=== PATIENT | male | born 1995 | race Hispanic/Latino ===

== ENCOUNTER 2020-09-23 19:23 | Emergency (ER) | payer OTHER ==
[~2020-09-23] VITALS: Ht 170.2 cm; Wt 74.8 kg
[2020-09-23] MEDS ORDERED: LIDOCAINE HCL 1% LOCAL INJ 20 ML VIAL INJ ONE (19:30)
[2020-09-23] MEDS ORDERED: TETANUS/DIPHTHERIA TOX ADULT 0.5 ML SYR ONE (19:48)
[2020-09-23] MEDS ORDERED: TETANUS/DIPHTHERIA TOX ADULT 0.5 ML SYR IM ONE (20:00)
[2020-09-23] MEDS ORDERED: CEPHALEXIN500 MG PO (20:12)
[2020-09-23] MEDS ORDERED: BACITRACIN ZINC 0.9GM TP ONE (21:31)
== END 2020-09-23 21:34 | disposition home or self-care (01) ==
LOC: ER 19:29
DX: S61.012A Laceration without foreign body of left thumb without damage to nail, initial encounter (principal); W26.0XXA Contact with knife, initial encounter; Y92.89 Other specified places as the place of occurrence of the external cause
CPT/HCPCS: 12001; 73130; 90471; 90714; 99283; J2001